=== PATIENT | male | born 1935 | race Caucasian/White ===

== ENCOUNTER 2021-10-26 17:29 | Inpatient (IN) | payer OTHER ==
[~2021-10-26] VITALS: Ht 167.6 cm; Wt 94.8 kg
--- NOTE | 2021-10-26 17:29 | NUR ---
[facility] ALS TO ER BED 10
[2021-10-26 17:39] VITALS: BP 86/45
[2021-10-26] MEDS ORDERED: PIPERACILLIN/TAZOBACTAM 3.375 GM in DEXTROSE 5% 50 ML IV ONE (17:50)
[2021-10-26] MEDS ORDERED: NACL 0.9% 2,000 ML IV ONE (17:50)
[2021-10-26] MEDS ORDERED: ACETAMINOPHEN EXTRA STRENGTH 500 MG TAB PO ONE ×2 (18:00→18:25)
[2021-10-26] MEDS ORDERED: PIPERACILLIN/TAZOBACTAM 3.375 GM VIAL IV ONE (18:00)
--- NOTE | 2021-10-26 18:00 | NUR ---
85 Y/O MALE BIBA FROM [facility], PT PRESENTS TO THE ED WITH ALOC, AND HYPOXIA, PT IS VERBALLY RESPONSIVE, RESPIRATIONS SHALLOW AND LABORED, TEMP 101.2, UNABLE TO TOLERATE PO INTAKE. BP 73/40, 22G IN THE RIGHT HAND GIVEN NS 500ML. 0 URINE NOTED IN SMITH, NOTED UMBILICAL HERNIA IN PLACE, PT CHANGED INTO A GOWN AND PLACED ON CARDIAC MONITTOR, POSITIONED IN [place]. pmh: aphasia, htn, hld, cad, hypothyroid, chronic heart failure, afib, cva, nstemi, pacemaker nka
[2021-10-26 18:16] LABS: BASOPHILS % (AUTO) 0.1 % (0.0-2.0); EOSINOPHILS % (AUTO) 0.1 % (0.0-4.0); HEMATOCRIT 45.3 % (36-52); HEMOGLOBIN 14.8 g/dL (12.0-18.0); LYMPHOCYTES # (AUTO) 0.1 K/uL (2.0-11.5); LYMPHOCYTES % (AUTO) 3.5 % (20.5-51.1); MEAN CORPUSCULAR HEMOGLOBIN 28 pg (27-31); MEAN CORPUSCULAR HGB CONC 33 g/dL (33-37); MEAN CORPUSCULAR VOLUME 85.1 fL (80-94); MONOCYTES % (AUTO) 0.4 % (1.7-9.3); NEUTROPHILS % (AUTO) 95.9 % (42.2-75.2); PLATELET COUNT (AUTO) 233 K/uL (140-450); RED BLOOD CELL COUNT(AUTO) 5.32 MIL/uL (4.20-6.10); RED CELL DISTRIBUTION WIDTH 15.6 % (11.6-13.7); WHITE BLOOD COUNT (AUTO) 4.2 K/uL (4.8-10.8)
[2021-10-26 18:36] LABS: ALBUMIN 2.5 g/dL (3.4-5.0); ANION GAP 18.7 (8-16); ASPARTATE AMINOTRANSFERASE 39 U/L (15-37); CARBON DIOXIDE 18.7 mmol/L (21-32); CHLORIDE 105 mmol/L (98-107); CREATININE 3.7 mg/dL (0.6-1.3); GLUCOSE 176 mg/dL (74-106); POTASSIUM 4.4 mmol/L (3.5-5.1); SODIUM SERUM 138 mmol/L (136-145); TOTAL BILIRUBIN 1.6 mg/dL (0.0-1.0); UREA NITROGEN, BLOOD 45 mg/dL (7-18)
[2021-10-26 18:39] LABS: PROTHROMBIN TIME 14.7 secs (10.8-13.4)
[2021-10-26] MEDS ORDERED: ACETAMINOPHEN 650 MG SUPP RC ONE ×2 (18:40→18:41)
[2021-10-26 18:41] LABS: LIPASE 23 U/L (73-393)
--- NOTE | 2021-10-26 18:44 | NUR ---
XRAY AT BEDSIDE
--- NOTE | 2021-10-26 18:55 | NUR ---
NO URINE NOTED IN SMITH
--- NOTE | 2021-10-26 19:20 | NUR ---
Pt report given to ROSA CHILDERS. Transfer of care at this time.
[2021-10-26] MEDS ORDERED: VANCOMYCIN 1,000 MG in DEXTROSE 5% 250 ML IV ONE (19:25)
[2021-10-26] MEDS ORDERED: MEROPENEM 1,000 MG in NACL 0.9% 50 ML IV ONE (19:25)
--- NOTE | 2021-10-26 19:30 | NUR ---
RECEIVED PT IN [place]. AWAKENS TO NAME . ASSISTED WITH REPOSITIONING. BP REMAINS LABILE
[2021-10-26] MEDS ORDERED: MEROPENEM 1,000 MG VIAL IV ONE (19:58)
[2021-10-26] MEDS ORDERED: VANCOMYCIN 1,000 MG VIAL ONE (19:58)
--- NOTE | 2021-10-26 23:01 | NUR ---
AWAKE, REPOSITIONED FOR COMFORT
[2021-10-27] VITALS (14 sets, daily range): BP systolic 62–141; BP diastolic 43–106
--- NOTE | 2021-10-27 00:05 | NUR ---
CENTRAL LINE PLACED PER DR. BOATENG
[2021-10-27] MEDS ORDERED: NOREPINEPHRINE 4 MG/4 ML VIAL IV ONE ×3 (00:19→05:40)
--- NOTE | 2021-10-27 00:27 | NUR ---
PORTABLE CXR DONE
--- NOTE | 2021-10-27 01:00 | NUR ---
LEVOPHED BEING TITRATED. SEE VS PER FLOWSHEET. PT REMAINS ANURIC WITH F/C IN PLACE. CM REMAINS ST
[2021-10-27] MEDS ORDERED: NOREPINEPHRINE 4 MG in DEXTROSE 5% 250 ML IV ONE (01:05)
[2021-10-27] MEDS ORDERED: ACETAMINOPHEN 325 MG TAB PO PRN (01:35)
--- NOTE | 2021-10-27 02:05 | NUR ---
TO ICU3 VIA GURNEY ATTACHED TO , ACCOMPANIED BY RN AND RUNNING RIGGER
--- NOTE | 2021-10-27 02:10 | NUR ---
RECEIVED PT. FROM ER OBTUNDED. REPORT GIVEN BY ALVARADO LEE. PT. ON NASAL CANULA 2L. BILATERAL LUNG SOUNDS CLEAR. IV RIGHT CENTRAL LINE INFUSING LEVOPHED DRIP AT 14MGC/MIN. PT. ALL EXTREMITIES WEAK. INITIAL ASSESSMENT DONE. PROVIDED PERSONAL CARE, ORAL CARE, DALLIN CARE. TAKEN PICTURE OF THE WOUND FROM THE SACRUM/COCCYX/BUTTOCK. PLEASE SEE WOUND ASSESSMENT. REPOSITIONED PT. AND PLACED IN COMFORTABLE POSITION. PROVIDED SAFE AND QUIET ENVIRONMENT.
--- NOTE | 2021-10-27 02:38 | NUR ---
DR. MICHELLE DOING ROUNDS, REPORTED PT. SCANTY URINE OUTPUT, CLOUDY WITH SEDIMENTS. HE ORDERED TO COLLECT URINE AND SEND TO LAB. I TOLD HIM THAT PT. URINE NOT ENOUGH TO SEND AND NO NEW ORDER MADE. WILL CONT. TO MONITOR.
--- NOTE | 2021-10-27 02:38 | NUR ---
DR.HAARIS MICHELLE MADE ROUNDS, SEEN AND ASSESSED PT. CONDITION. REPORTED PT. DRIP OF LEVOPHED DRIP 16MCG/MIN AND SBP IN THE 70'S. HE ORDERED TO START VASOPRESSIN AND IF STILL LOW TO START SHEELA-SYNEPHRINE. HE ORDERED TO START NS AT 100 ML/HR AND CT SCAN OF HEAD/ABDOMEN/PELVIS WITHOUT CONTRAST. I SHOWED DR. MICHELLE THE PICTURE OF THE WOUND FROM THE SACRUM/COCCYX.
[2021-10-27] MEDS ORDERED: PHENYLEPHRINE 10 MG in NACL 0.9% 250 ML IV PRN (02:55)
[2021-10-27] MEDS: NACL 0.9% 1,000 ML IV SCH ×3 (02:55→21:35)
--- NOTE | 2021-10-27 03:11 | NUR ---
BROUGHT PT. TO CT SCAN TO DO CT OF THE HEAD/ABDOMEN WITHOUT CONTRAST. PER DR. MICHELLE IF CT SCAN OF THE HEAD RESULY NEGATIVE, START HEPARIN.
--- NOTE | 2021-10-27 03:27 | NUR ---
PT. BACK TO ICU FROM CT OF HEAD AND PELVIS. PLACED INCOMFORTABLE POSITION AND WILL CONT. TO MONITOR.
[2021-10-27] MEDS ORDERED: VASOPRESSIN 20 UNITS/ML VIAL ONE (03:38)
--- NOTE | 2021-10-27 04:28 | NUR ---
LAB WAS HERE FOR BLOOD DRAWN
[2021-10-27] MEDS: PIPERACILLIN/TAZOBACTAM 2.25 GM in DEXTROSE 5% 50 ML IV SCH ×3 (05:00→21:46)
[2021-10-27] MEDS: NOREPINEPHRINE 8 MG in DEXTROSE 5% 250 ML IV PRN ×3 (05:48→08:38)
[2021-10-27] MEDS: HYDROCORTISONE NA SUCC 100 MG/2 ML VIAL IV SCH ×3 (05:51→21:40)
--- NOTE | 2021-10-27 06:00 | NUR ---
ZOSYN 2.25 GM IN D5% 50 ML IVPB GIVEN AT 0600.
[2021-10-27 06:13] LABS: ANION GAP 18.1 (8-16); ASPARTATE AMINOTRANSFERASE 64 U/L (15-37); CHLORIDE 106 mmol/L (98-107); GLUCOSE 148 mg/dL (74-106); MAGNESIUM 1.4 mg/dL (1.8-2.4); POTASSIUM 4.1 mmol/L (3.5-5.1); SODIUM SERUM 139 mmol/L (136-145); THYROID STIMULATING HORMONE 4.93 uIU/mL (0.34-3.74); TOTAL BILIRUBIN 1.3 mg/dL (0.0-1.0); UREA NITROGEN, BLOOD 51 mg/dL (7-18)
[2021-10-27 06:14] LABS: CREATININE 4.2 mg/dL (0.6-1.3)
[2021-10-27] MEDS ORDERED: PIPERACILLIN/TAZOBACTAM 2.25 GM VIAL IV ONE (06:29)
[2021-10-27] MEDS: ALBUMIN HUMAN 25% 50 ML IV SCH (06:40)
--- NOTE | 2021-10-27 06:44 | NUR ---
LAB CALLED AT 0620 LACTIC ACID 2.2 AND WBC 30,000 PLUS. AT 0642, LAB CALLED AGAIN AND STATED THEY WILL REPEAT THE BLOOD DRAW FOR WBC DUE TO 30.6 RESULT TODAY AND PREVIOUS ONE WAS 4.2.
[2021-10-27] MEDS ORDERED: FUROSEMIDE 100 MG/10 ML VIAL IV SCH (06:45)
--- NOTE | 2021-10-27 06:48 | NUR ---
PT. SON BINDU SABA JR. CALLED AND PROVIDED UPDATE WITH PT. CURRENT CONDITION AND NO FURTHER QUESTIONS ASKED.
[2021-10-27] MEDS: VASOPRESSIN 20 UNITS in NACL 0.9% 250 ML IV SCH ×2 (07:00→15:00)
--- NOTE | 2021-10-27 07:04 | NUR ---
RECEIVED ON SUPPLEMENTAL OXYGEN AT 2 LPM VIA NC SATURATION 85% INCREASED FIO2 TO 4 LPM VIA NC ARSON INVESTIGATOR TO MONITOR ALEC/SUPERVISOR CLEANING AND ANNEALING NOTIFIED
--- NOTE | 2021-10-27 07:35 | NUR ---
RECEIVED REPORT FROM MANUFACTURING ENGINEERING INTERN NURSE JOANN.
--- NOTE | 2021-10-27 07:38 | NUR ---
REPORT GIVEN TO ALVARADO CONRAD FOR CONTINUITY OF CARE.
--- NOTE | 2021-10-27 07:55 | NUR ---
DR. MANRIQUE AT BEDSIDE.
[2021-10-27] MEDS ORDERED: metOLazone 5 MG TAB PO SCH (09:00)
--- NOTE | 2021-10-27 09:00 | NUR ---
PATIENT UNABLE TO SWALLOW. MD AWARE. REATTEMPT SWALLOW EVALUATION TOMORROW.
[2021-10-27 09:11] LABS: APPEARANCE,URINE CLOUDY (CLEAR); BILIRUBIN,URINE 2+ (NEGATIVE); BLOOD, URINE 3+ (NEGATIVE); COLOR,URINE AMBER (YELLOW); LEUKOCYTE ESTERASE ,URINE 2+ (NEGATIVE); NITRITE, URINE POSITIVE (NEGATIVE); UGLUCOSE NEGATIVE (NEGATIVE)
[2021-10-27] MEDS: FUROSEMIDE 100 MG in DEXTROSE 5% 100 ML IV SCH ×2 (09:15→20:00)
--- NOTE | 2021-10-27 09:15 | NUR ---
DR. GILES AT BEDSIDE.
[2021-10-27 09:23] LABS: WBC,URINE 20-60 /HPF (0-5)
[2021-10-27] MEDS: PANTOPRAZOLE 40 MG INJ VIAL IVP SCH (09:23)
[2021-10-27] MEDS ORDERED: MAG SULF 2000 MG/WATER PREMIX 50 ML IV SCH (09:30)
--- NOTE | 2021-10-27 09:31 | NUR ---
PATIENT HAS BEEN SCREENED AND CATEGORIZED HIGH NUTRITION RISK. PATIENT WILL BE SEEN WITHIN 1-[address]. YURI [address]Z [address]
--- NOTE | 2021-10-27 09:35 | NUR ---
PATIENT CONFUSED, A&O X1. ADMITTED FOR ALOC AND HYPOXIA. PATIENT ON OXYGEN 2L VIA NC AND LUNGS CLEAR TO AUSCULTATION. PATIENT DIET NPO. BOWEL MOVEMENTS ACTIVE. PATIENT WAS NOT ABLE TO TAKE ORAL MEDS. NEW SMITH INSERTED PREVIOUS SMITH WAS NOT PLACED CORRECTLY. 1400ML URINE OUTPUT AFTER NEW SMITH INSERTION. PATIENT HR TENDS TO GO UP TO 140. PATIENT ON BEDSIDE MONITORING. CENTRAL LINE INTACT AND PATENT.
[2021-10-27 09:45] LABS: HEMATOCRIT 40.2 % (36-52); HEMOGLOBIN 13.2 g/dL (12.0-18.0); MEAN CORPUSCULAR HEMOGLOBIN 28 pg (27-31); MEAN CORPUSCULAR HGB CONC 33 g/dL (33-37); MEAN CORPUSCULAR VOLUME 84.3 fL (80-94); PLATELET COUNT (AUTO) 201 K/uL (140-450); RED BLOOD CELL COUNT(AUTO) 4.76 MIL/uL (4.20-6.10); WHITE BLOOD COUNT (AUTO) 16.4 K/uL (4.8-10.8)
--- NOTE | 2021-10-27 10:40 | NUR ---
RESTING COMFORTABLY NO DISTRESS NOTED GOOD CHEST RISE AIRWAY PATENT SATURATION 98% ON HUMIDIFIED SUPPLEMENTAL OYXGEN AT 4 LPM VIA NC TITRATED FIO2 TO 3 LPM VAN/APPAREL MERCHANDISER NOTIFIED
[2021-10-27 11:05] LABS: ANION GAP 24.8 (8-16); CARBON DIOXIDE 12.7 mmol/L (21-32); CHLORIDE 106 mmol/L (98-107); GLUCOSE 143 mg/dL (74-106); POTASSIUM 4.5 mmol/L (3.5-5.1); SODIUM SERUM 139 mmol/L (136-145); UREA NITROGEN, BLOOD 55 mg/dL (7-18)
[2021-10-27 11:24] LABS: CREATININE 4.5 mg/dL (0.6-1.3)
--- NOTE | 2021-10-27 11:46 | NUR ---
NOTIFIED MD DR. GILES OF LOW URINE OUTPUT. ORDERED ONE TIME DOSE OF LASIX 120MG IVP.
--- NOTE | 2021-10-27 11:50 | NUR ---
PT SON, BINDU, AT BEDSIDE, UPDATED REGARDING PT CONDITION AND PLAN OF CARE. SPOKE WITH KARL, PT DAUGHTER, VIA VISITOR'S IPHONE, UPDATED REGARDING PT CONDITION AND PLAN OF CARE. DISCUSSED CODE STATUS, BINDU ZAVALA WANTS TO CONTINUE WITH POLST FROM 10/20 WITH DNR/DNI/NO BIPAP/NO CARDIOVERSION/NO DEFIB, BUT VASOPRESSORS OKAY. TEXTED DR MANRIQUE, RECEIVED MODIFIED CODE ORDERS.
[2021-10-27] MEDS ORDERED: FUROSEMIDE 100 MG/10 ML VIAL IVP ONE (11:55)
[2021-10-27] MEDS ORDERED: FUROSEMIDE 100 MG/10 ML VIAL IVP SCH (12:02)
[2021-10-27] MEDS ORDERED: FUROSEMIDE 20 MG/2 ML VIAL IVP SCH (12:05)
[2021-10-27 12:22] LABS: PLATELET COUNT,MANUAL 201 K/uL (150-450)
[2021-10-27 12:23] LABS: MONOCYTES % (AUTO) 0.3 % (1.7-9.3); NEUTROPHILS % (AUTO) 98.7 % (42.2-75.2)
[2021-10-27 12:24] LABS: BASOPHILS % (MANUAL) 0 % (0-2); EOSINOPHILS % (MANUAL) 0 % (0-4); LYMPHOCYTES # (AUTO) 0.2 K/uL (2.0-11.5); LYMPHOCYTES % (MANUAL) 3 % (20-46); MONOCYTES # (AUTO) 0.1 K/uL (0.8-1.0); MONOCYTES % (MANUAL) 2 % (5-12); NEUTROPHILS # (AUTO) 16.2 K/uL (1.8-7.7)
[2021-10-27 12:25] LABS: BLASTS, MANUAL % 0 % (0-0); METAMYELOCYTES % 0 % (0-0); MYELOCYTES % 0 % (0-0); OTHER CELLS,MANUAL % 0 (0-0); PROMYELOCYTES % 0 % (0-0)
--- NOTE | 2021-10-27 12:42 | NUR ---
DC PLANN[age] YRS OLD MALE PATIENT WAS ADMITTED FROM [facility] WITH A DX OF SEPSIS HYPOTENSION AND JOSE. PATIENT HAS A HX OF CVA A-VIB CHF, PACE MAKER HYPOTHYROIDISM HLD AND HTN. BP ON ADMISSION 73/40. ADMITTED IN ICU, STARTED LEVOPHED DRIP. ADMINISTERED IVF , IV ABX VANCO AND ZOSYN. CONSULTED WITH PULMO AND NEPHRO. SEEN BY DR LULÚ GILES ORDERED LASIX DRIP. DC PLAN TO RETURN TO [facility] WHEN STABLE. CM TO FOLLOW. Addendum: 10/28/21 at 1102 by Radha Ni RN DC PLANNING: WBC 28.6 B/C 65/3.6 SEEN BY ANNE AND PARI. NOT A CANDIDATE FOR HEMODIALYSIS, RENAL FUNCTION IMPROVED. BP 81/45 ON LEVO DRIP. CONTINUED IVF, IV ABX ZOSYN AND VANCOMYCIN, HEPARIN DRIP FOR HIGH TROP 158. ANNE AND NEPHRO FOLLOWING. CM MET PT'S SON BINDU ZAVALA [phone] AT THE BED SIDE DISCUSSED THE DC PLAN TO RETURN TO [facility] OR HOME WITH HOSPICE. DR BRITTON SPOKE WITH BINDU ZAVALA AGREED WITH HOSPICE. CM TO FOLLOW Addendum: 10/29/21 at 1116 by Radha Ni RN DC PLANNING: CALLED PT'S SON SPOKE WITH BIDNU ZAVALA STATED AGREED AND HE SIGNED HOSPICE WITH [facility]. HOWEVER HE PREFERRED TO SEND HIM TO [facility]. CALLED [facility] SPOKE WITH CLAIRE STATED THEY ARE LOOKING FOR A PLACEMENT AND WILL CALL BACK. CM TO FOLLOW Addendum: 10/29/21 at 1555 by Radha Ni RN DC PLANNING: PATIENT IS ACCEPTED WITH [facility] # [phone]. PT'S SON BINDU ZAVALA SIGNED THE PAPERWORK WITH [facility] AND PATIENT WILL BE GOING TO [facility] IN [facility]. RECEIVED A CALL FROM JAMES CHILDERS AT [facility] [employer] [place] DRIVER TIME BETWEEN 6-7 PM WITH [facility]. NOTIFIED JANICE CHARGE NURSE.
--- NOTE | 2021-10-27 13:00 | NUR ---
PT HAD 1 LARGE SOFT BM. BROWN IN COLOR.
--- NOTE | 2021-10-27 14:00 | NUR ---
10/27/21 RD INITIAL ASSESSMENT COMPLETED PLEASE REFER TO NUTRITION ASSESSMENT UNDER CARE ACTIVITY FOR ESTIMATED NUTRITIONAL NEEDS. 1. IF PT FAILS SWALLOW EVAL AND REQUIRES TUBE FEEDING, RECOMMEND NEPRO CARBSTEADY WITH A GOAL RATE OF 40 ML/HR -FWF: 100 ML Q6H OR PER MD -START AT 10 ML/HR AND INCREASE BY 10 ML Q4H TOLERATED -WILL PROVIDE 1728 KCAL AND 77 GM PROTEIN MEETING 100% OF ESTIMATED NUTRIENT NEEDS 2. IF PT PASSES SWALLOW EVAL, RECOMMEND RENAL DIET WITH TEXTURE MODIFICATION PER SLT RECOMMENDATIONS 3. MONITOR NUTRITION-RELATED LAB VALUES 4. RD TO FOLLOW-UP 2-3 DAYS, HIGH RISK YURI VALDEZ RD
--- NOTE | 2021-10-27 15:24 | NUR ---
PT HAD 2ND BM.
[2021-10-27] MEDS ORDERED: HYDRAGUARD CREAM TP ONE (15:40)
[2021-10-27] MEDS ORDERED: HYDRAGUARD CREAM TP PRN (15:40)
--- NOTE | 2021-10-27 19:32 | NUR ---
REPORT GIVEN TO DICE SPOTTER NURSE LENA.
[2021-10-28] VITALS (23 sets, daily range): BP systolic 64–125; BP diastolic 49–88
[2021-10-28] MEDS ORDERED: PHENYLEPHRINE 10 MG/ML VIAL ONE ×2 (00:01→04:27)
[2021-10-28] MEDS: FUROSEMIDE 100 MG in DEXTROSE 5% 100 ML IV SCH (00:32)
[2021-10-28] MEDS ORDERED: ALBUMIN HUMAN 25% 50 ML IV SCH ×2 (01:00)
[2021-10-28] MEDS: ALBUMIN HUMAN 25% 50 ML IV SCH ×2 (02:44→15:06)
[2021-10-28] MEDS: HYDROCORTISONE NA SUCC 100 MG/2 ML VIAL IV SCH ×3 (04:40→21:38)
[2021-10-28] MEDS: PIPERACILLIN/TAZOBACTAM 2.25 GM in DEXTROSE 5% 50 ML IV SCH ×3 (04:41→21:40)
[2021-10-28] MEDS: NACL 0.9% 1,000 ML IV SCH ×4 (04:43→16:54)
[2021-10-28] MEDS ORDERED: VASOPRESSIN 20 UNITS/ML VIAL ONE (05:46)
[2021-10-28] MEDS: VASOPRESSIN 20 UNITS in NACL 0.9% 250 ML IV SCH (05:52)
[2021-10-28 06:01] LABS: BASOPHILS % (AUTO) 0.1 % (0.0-2.0); EOSINOPHILS # (AUTO) 0.3 K/uL (0-0.4); EOSINOPHILS % (AUTO) 1.2 % (0.0-4.0); HEMATOCRIT 36.5 % (36-52); HEMOGLOBIN 12.1 g/dL (12.0-18.0); LYMPHOCYTES # (AUTO) 0.8 K/uL (2.0-11.5); LYMPHOCYTES % (AUTO) 2.7 % (20.5-51.1); MEAN CORPUSCULAR HEMOGLOBIN 28 pg (27-31); MEAN CORPUSCULAR HGB CONC 33 g/dL (33-37); MEAN CORPUSCULAR VOLUME 83.6 fL (80-94); MONOCYTES # (AUTO) 0.8 K/uL (0.8-1.0); MONOCYTES % (AUTO) 2.6 % (1.7-9.3); NEUTROPHILS # (AUTO) 26.7 K/uL (1.8-7.7); NEUTROPHILS % (AUTO) 93.4 % (42.2-75.2); PLATELET COUNT (AUTO) 152 K/uL (140-450); RED BLOOD CELL COUNT(AUTO) 4.36 MIL/uL (4.20-6.10); RED CELL DISTRIBUTION WIDTH 15.4 % (11.6-13.7)
[2021-10-28 06:02] LABS: ALBUMIN 2.6 g/dL (3.4-5.0); ANION GAP 19.7 (8-16); ASPARTATE AMINOTRANSFERASE 52 U/L (15-37); CARBON DIOXIDE 18.9 mmol/L (21-32); CHLORIDE 104 mmol/L (98-107); CREATININE 3.6 mg/dL (0.6-1.3); GLUCOSE 216 mg/dL (74-106); MAGNESIUM 1.9 mg/dL (1.8-2.4); POTASSIUM 3.6 mmol/L (3.5-5.1); SODIUM SERUM 139 mmol/L (136-145); TOTAL BILIRUBIN 0.9 mg/dL (0.0-1.0)
[2021-10-28 06:04] LABS: UREA NITROGEN, BLOOD 65 mg/dL (7-18)
[2021-10-28 06:07] LABS: WHITE BLOOD COUNT (AUTO) 28.6 K/uL (4.8-10.8)
--- NOTE | 2021-10-28 07:15 | NUR ---
Received pt awake and confused, unable to follow commands. On O2 @ 2L/min via nasal cannula. A. fib on the monitor. NPO at this time pending swallow eval. Carrizales catheter intact and draining to BSD. Right subclavian central line intact and patent infusing Ben-Synephrine @ 50mcg/min, Vasopressin @ 0.2 units/min, and NS @ 100ml/hr. Peripheral IV on right AC 22 gauge intact and saline locked. Peripheral IV on RFA 22 gauge intact and patent infusing Lasix @20mg/hr. Safety precautions in place. Addendum: 10/28/21 at 1001 by Neda Larson RN Right subclavian central line intact and patent infusing Ben-Synephrine @ 50mcg/min, Vasopressin @ 0.02 units/min, and NS @ 100ml/hr.
--- NOTE | 2021-10-28 07:20 | NUR ---
Checked order and Lasix IV discontinued. Stopped infusion. Addendum: 10/28/21 at 0748 by Neda Larson RN Correct time 0730.
[2021-10-28] MEDS ORDERED: PHENYLEPHRINE 40 MG in NACL 0.9% 250 ML IV PRN (07:55)
[2021-10-28] MEDS ORDERED: hePARIN / DEXT 5% PREMIX 250 ML IV SCH ×2 (08:05→08:15)
[2021-10-28] MEDS ORDERED: VANCOMYCIN PER PHARMACY MC PRN (08:05)
--- NOTE | 2021-10-28 08:12 | NUR ---
Seen and examined by Dr. Wakefield. New orders received.
[2021-10-28] MEDS: PANTOPRAZOLE 40 MG INJ VIAL IVP SCH (08:14)
--- NOTE | 2021-10-28 08:21 | NUR ---
Heparin 5000 units SQ not given due to MD discontinuation of medication.
[2021-10-28] MEDS ORDERED: FUROSEMIDE 100 MG/10 ML VIAL IV SCH (09:00)
--- NOTE | 2021-10-28 10:26 | NUR ---
Seen and examined by Dr. Nolan. New order received. Dr. Nolan on phone with son Evaristo Deleon. discussing plan of care.
[2021-10-28] MEDS ORDERED: NACL 0.9% 500 ML IV SCH (10:30)
[2021-10-28] MEDS ORDERED: HEPARIN PER PHARMACY MC PRN (10:50)
[2021-10-28] MEDS ORDERED: VANCOMYCIN 1,000 MG in DEXTROSE 5% 250 ML IV SCH (11:00)
--- NOTE | 2021-10-28 11:21 | NUR ---
PT AWAKE AND ALERT. SPO2 99 AND 1L NC, TITRATED TO RA, SPO2 97%. RN AWARE. WILL CONTINUE TO MONITOR.
[2021-10-28] MEDS: hePARIN / DEXT 5% PREMIX 250 ML IV SCH (11:49)
--- NOTE | 2021-10-28 12:00 | NUR ---
Re-assessed neuro and pt alert and oriented x1 (person). Able to respond by nodding/shaking head and short words. Pt able to follow commands. Reoriented pt to environment and staff.
--- NOTE | 2021-10-28 12:58 | NUR ---
Ismael Loera Jr. at bedside.
--- NOTE | 2021-10-28 14:47 | NUR ---
Seen and examined by Leila Vega. New orders received. Son Evaristo at bedside. All questions answered by the doctor.
--- NOTE | 2021-10-28 17:55 | NUR ---
Speech therapist at bedside performing swallow eval.
--- NOTE | 2021-10-28 18:06 | NUR ---
PT WAS SEEN FOR DYSPHAGIA. PT WAS POCKETING FOR TRIALS OF APPLE SAUCE. PT HAD DIFFICULTY WITH INITIATING SWALLOW. RECOMMENDATION NOTHING BY MOUTH
--- NOTE | 2021-10-28 19:10 | NUR ---
Endorsed to shift foreman nurse Juju for continuity of care.
--- NOTE | 2021-10-28 19:30 | NUR ---
RECEIVED REPORT FROM WILFREDO CHILDERS. PT IS LYING SUPINE WITH HIS EYES CLOSED . NO DISTRESS NOTED.
[2021-10-28] MEDS: FUROSEMIDE 100 MG/10 ML VIAL IVP SCH (21:38)
[2021-10-28] MEDS: MORPHINE SULFATE 2 MG/ML SYR IVP PRN (22:00)
[2021-10-29] VITALS (20 sets, daily range): BP systolic 101–135; BP diastolic 60–90
[2021-10-29] MEDS: ALBUMIN HUMAN 25% 50 ML IV SCH (03:11)
[2021-10-29] MEDS: NACL 0.9% 1,000 ML IV SCH ×2 (03:18→12:59)
[2021-10-29] MEDS: HYDROCORTISONE NA SUCC 100 MG/2 ML VIAL IV SCH ×3 (04:58→20:24)
[2021-10-29] MEDS: FUROSEMIDE 100 MG/10 ML VIAL IVP SCH ×2 (04:59→12:34)
[2021-10-29] MEDS: PIPERACILLIN/TAZOBACTAM 2.25 GM in DEXTROSE 5% 50 ML IV SCH ×3 (04:59→20:24)
[2021-10-29 07:13] LABS: BASOPHILS % (AUTO) 0.1 % (0.0-2.0); HEMATOCRIT 36.4 % (36-52); LYMPHOCYTES # (AUTO) 0.6 K/uL (2.0-11.5); LYMPHOCYTES % (AUTO) 2.2 % (20.5-51.1); MEAN CORPUSCULAR HEMOGLOBIN 28 pg (27-31); MEAN CORPUSCULAR HGB CONC 33 g/dL (33-37); MEAN CORPUSCULAR VOLUME 83.8 fL (80-94); MONOCYTES # (AUTO) 0.9 K/uL (0.8-1.0); MONOCYTES % (AUTO) 3.2 % (1.7-9.3); NEUTROPHILS # (AUTO) 27.6 K/uL (1.8-7.7); NEUTROPHILS % (AUTO) 94.5 % (42.2-75.2); PLATELET COUNT (AUTO) 128 K/uL (140-450); RED BLOOD CELL COUNT(AUTO) 4.35 MIL/uL (4.20-6.10); RED CELL DISTRIBUTION WIDTH 15.8 % (11.6-13.7)
--- NOTE | 2021-10-29 07:20 | NUR ---
Received pt alert and oriented x2, able to follow commands. O2 sat 96% on room air. A. Fib on monitor. Pt with pacemaker on left side of upper chest. NPO at this time due to failed swallow eval. Carrizales catheter intact and draining to bed side drainage. Central line on right subclavian intact and patent infusing NS @100ml/hr and ryan-synephrine @ 25mcg/min. Peripheral IV 22 gauge on right AC intact and patent infusing Heparin drip @1100 units/hr. Peripheral IV on right forearm saline locked intact and patent. Safety precautions in place.
[2021-10-29 07:54] LABS: WHITE BLOOD COUNT (AUTO) 29.1 K/uL (4.8-10.8)
[2021-10-29 07:59] LABS: CARBON DIOXIDE 18.9 mmol/L (21-32); CHLORIDE 105 mmol/L (98-107); CREATININE 3.4 mg/dL (0.6-1.3); GLUCOSE 176 mg/dL (74-106); SODIUM SERUM 142 mmol/L (136-145)
[2021-10-29 08:03] LABS: POTASSIUM 2.9 mmol/L (3.5-5.1)
[2021-10-29 08:04] LABS: UREA NITROGEN, BLOOD 77 mg/dL (7-18)
--- NOTE | 2021-10-29 08:06 | NUR ---
Seen and examined by Dr. Wakefield. New orders received. Addendum: 10/29/21 at 09 by Neda Larson RN Reported labs to Dr. Wakefield and updated regarding pt condition.
[2021-10-29] MEDS: PANTOPRAZOLE 40 MG INJ VIAL IVP SCH (08:13)
[2021-10-29] MEDS ORDERED: KCL 20 MEQ/WATER INJ PREMIX 100 ML IV SCH (08:30)
[2021-10-29] MEDS: MORPHINE SULFATE 2 MG/ML SYR IVP PRN (08:44)
[2021-10-29] MEDS ORDERED: VANCOMYCIN 750 MG in DEXTROSE 5% 250 ML IV SCH (09:00)
[2021-10-29] MEDS ORDERED: KCL 20 MEQ/WATER INJ PREMIX 200 ML IV SCH (11:00)
--- NOTE | 2021-10-29 11:35 | NUR ---
Collected sample for covid19 patric swab and walked over to lab.
[2021-10-29] MEDS: hePARIN / DEXT 5% PREMIX 250 ML IV SCH (12:32)
--- NOTE | 2021-10-29 14:45 | NUR ---
Seen and examined by Dr. Rao. New order received to stop lasix.
--- NOTE | 2021-10-29 17:18 | NUR ---
Reported blood culture to Dr. Wakefield. No new orders.
--- NOTE | 2021-10-29 18:02 | NUR ---
Seen and examined by Dr. Nolan.
--- NOTE | 2021-10-29 19:09 | NUR ---
Endorsed to second shift supervisor Yanira for continuity of care.
--- NOTE | 2021-10-29 19:15 | NUR ---
RECEIVED PATIENT ON BED ALERT AND ORIENTED, BREATHING EVEN AND UNLABORED ON ROOM AIR; CARDIACSCOPE SHOWS IN ATRIAL FIB. WITH OCCASIONAL PACING SPIKES HR 107/MIN. COMMENCING ON IVF NORMAL SALINE AT 100 ML/HR VIA CENTRAL LINE ON RIGHT SUBCLAVIAN; PATENT AND INTACT. ABDOMEN IS SOFT, NON TENDER, ACTIVE BOWEL SOUNDS. WITH SMITH CATH IN PLACE DRAINING TO CLEAR YELLOW URINE OUTPUT.
--- NOTE | 2021-10-29 20:00 | NUR ---
TURNED AND REPOSITIONED PATIENT.
--- NOTE | 2021-10-29 20:30 | NUR ---
TRIED TO GIVE ORALLY SMALL AMOUNT OF WATER AROUND 30 ML TO PATIENT AND HE WAS ABLE TO TOLERATE IT.
--- NOTE | 2021-10-29 21:35 | NUR ---
PATIENT WAS DISCHARGE TO [facility]. ENDORSED TO TRANSPORT PERSONNEL. PATIENT'S SON BINDU WAS INFORMED AND NOTIFIED LATER.
== END 2021-10-29 21:35 | disposition hospice, home (50) | DRG 871 ==
LOC: MED 17:29 → MMU 10-27 01:42 → MIC 10-27 02:01
PROVIDERS: ADMIT Internal Medicine; ATTEND Internal Medicine
PROC: 02HV33Z Insertion of Infusion Device into Superior Vena Cava, Percutaneous Approach (ICD-10-PCS; principal; 2021-10-26)
PROC: 0T2BX0Z Change Drainage Device in Bladder, External Approach (ICD-10-PCS; 2021-10-27)
DX: A41.9 Sepsis, unspecified organism (principal); I21.4 Non-ST elevation (NSTEMI) myocardial infarction; R65.21 Severe sepsis with septic shock; J96.01 Acute respiratory failure with hypoxia; I50.20 Unspecified systolic (congestive) heart failure; N17.9 Acute kidney failure, unspecified; N12 Tubulo-interstitial nephritis, not specified as acute or chronic; N18.9 Chronic kidney disease, unspecified; F03.90 Unspecified dementia, unspecified severity, without behavioral disturbance, psychotic disturbance, mood disturbance, and anxiety; Z20.822 Contact with and (suspected) exposure to COVID-19; E03.9 Hypothyroidism, unspecified; I25.10 Atherosclerotic heart disease of native coronary artery without angina pectoris; E78.5 Hyperlipidemia, unspecified; N13.9 Obstructive and reflux uropathy, unspecified; I12.9 Hypertensive chronic kidney disease with stage 1 through stage 4 chronic kidney disease, or unspecified chronic kidney disease; Z66 Do not resuscitate; Z86.73 Personal history of transient ischemic attack (TIA), and cerebral infarction without residual deficits; Z95.0 Presence of cardiac pacemaker
CPT/HCPCS: 36415; 36600; 70450; 71045; 80048; 80053; 80202; 81001; 82533; 82803; 83605; 83690; 83735; 83880; 84132; 84443; 84484; 85025; 85610; 85730; 87040; 87081; 92526; 92610; 93005; 96365; 96367; 96368; 99291; C9113; J1644; J1720; J1940; J2185; J2270; J2370; J2543; J3370; J3475; J3480; J3490; J7030; J7060; P9046; Q0092